=== PATIENT | female | born 1960 | race African-American/Black ===

== ENCOUNTER 2019-12-05 09:04 | Outpatient (CLI) | payer OTHER ==
[2019-12-05] MEDS ORDERED: GADOPENTETATE DIMEGLUMINE 5 ML VIAL IV ONE (09:48)
== END 2019-12-05 18:00 | disposition home or self-care (01) ==
LOC: SMI 09:04
PROVIDERS: ATTEND Otolaryngology
DX: R90.82 White matter disease, unspecified (principal); H91.92 Unspecified hearing loss, left ear
CPT/HCPCS: 70553; A9579